=== PATIENT | male | born 1945 ===

== ENCOUNTER → 2020-07-10 | Outpatient (CLI) | payer OTHER ==
[~2020-07-10] VITALS: Ht 177.8 cm; Wt 86.2 kg
[~2020-07-10] MED LIST: DIOVAN 80 MG TA80 M1 PO; ELIQUIS5 MG PO; FISH OIL 1,0001 EAC9 PO; FOLIXAPURE5000 UNIT PO; GLUCOSAMINE H1500 MG PO; HYDROCHLOROTH12.5 M2 PO; LIPITOR 20 MG T20 M1 PO; OPTIFLEX-C400 MG PO; SUPER THERAVIT1 EACH PO; TAMBOCOR 100 M100 M1 PO; VIAGRA50 MG PO; VITAMIN B COMP1 EACH PO; VITAMIN C1000 MG PO
--- NOTE | ~2020-07-10 | HPC ---
[facility] [place] [address] PAIN MANAGEMENT CONSULTATION Name: CHRISTIANO YADAV Room #: REG KULDIP Begum.#: [id number] Admission: 07/10/20 Attend Phys: Jung Sanchez DO Discharge: Date of : 49 Report #: [id number] THIS REPORT FOR: cc: Bishnu Oneill MD,Jung Amaral MD, DO ~ CC: Dr. Nino Oneill DATE OF SERVICE: 07/10/2020 REFERRING PHYSICIAN: Dr. Oneill. CHIEF COMPLAINT: Low back pain, left lower extremity pain with paresthesias. HISTORY OF PRESENT ILLNESS: As you know, the patient is a very pleasant 75-year-old male who reports an acute recurrence of low back pain, left lower extremity pain that presented 11/28/2019. The patient indicates that he sought evaluation through his primary care physician due to ongoing pain issues that did not resolve with rest, relaxation, changes in activities and uhsm-uez-dvrpuye medications. He was subsequently referred to pain management with another pain service where he underwent L4-L5 lumbar epidural injection under fluoroscopic guidance to address spinal stenosis at L4-L5. This injection was met without any analgesic benefit. He returned in followup visit, underwent an L5-S1 intraarticular facet injection, which did provide improvement in symptoms consistent with the fact that epidural injections tend to migrate cephalad by 1 level when injecting. The fact that he received improvement was a bonus. He received about a month to month and a half improvement. He discussed further treatment with the pain management physician who advised the patient that they had nothing more to offer him and he was discharged. He sought evaluation again through his primary care physician and thus referred to our clinic to discuss options for treatment. The patient indicates days' pain is constant. Describes the pain as shooting and aching. Places current pain score 6/10, daily average anywhere from 4-8/10, worst pain has been is 9/10. The patient states his pain is exacerbated with standing, walking any long distance or lying in bed. Pain does improve with sitting or lying down. He has been referred to our service to discuss treatment options for his severe central canal stenosis at L4-L5 and bilateral neural foraminal stenosis at L4-L5 and L5-S1. PAST MEDICAL HISTORY: 1. Hypertension. 2. Chronic lumbar radiculopathy secondary to severe central canal stenosis. 3. Erectile dysfunction. [address] [address] PAIN MANAGEMENT CONSULTATION Name: CHRISTIANO YADAV Room #: REG CLI [facility]#: [id number] Admission: 07/10/20 Attend Phys: Jung Sanchez DO Discharge: Date of : 49 Report #: [id number] 4. Dyslipidemia. 5. Chronic anticoagulation. PAST SURGICAL HISTORY: 1. Tonsillectomy. 2. Right leg surgery 2014 and repeated in 2016, rotator cuff repair on the right 1993, left 2003, excision of various skin cancers. SOCIAL HISTORY: The patient denies tobacco use. He admits to 1-2 alcohol beverages per day. He denies IV or illicit drug use. He is retired, not receiving workmen's compensation nor is he trying to obtain disability benefits. He is not in litigation in regards to pain. He is unaccompanied at today's visit. REVIEW OF SYSTEMS: Positive for wearing corrective eyewear, cataracts, hearing loss with tinnitus, nocturia, low back pain, left lower extremity pain with paresthesias. All other review of systems negative per 12-point review of systems other than those listed in history of present illness. Pain impact score 45/70, severe interference of daily activities secondary to pain. ALLERGIES: No known drug allergies. CURRENT MEDICATIONS: Viagra 50 mg p.r.n., flecainide 100 mg b.i.d., hydrochlorothiazide 12.5 mg once a day, valsartan 80 mg once a day, atorvastatin 20 mg per day, Eliquis 5 mg b.i.d., Optiflex 400 mg once a day, glucosamine 1500 mg per day, vitamin D3 and folic acid 1 tablet per day, omega-3 fish oil 1 tab per day, vitamin B complex 1 tab per day, ascorbic acid 1000 mg once a day, multivitamin 1 tab per day. IMAGING: MRI lumbar spine obtained 04/26/2020 shows grade 2 anterolisthesis of L4 on L5 with related degenerative disk disease, advanced facet arthrosis and chronic left L4 pars interarticularis fracture. Combination results in severe central canal stenosis, tfoddmeb-jy-yojfae bilateral neural foraminal stenosis. L5-S1, severe degenerative disk disease, facet arthropathy that is advanced. This causes pormywff-vk-ffmhyl bilateral neural foraminal stenosis. There is advanced arthrosis noted at L3-L4 with only moderate central canal stenosis and moderate neural foraminal stenosis. PQRS: The patient has known arthritic changes of the lumbar spine, bilateral hips and knees. No rheumatoid arthritis. He is placing current pain score 6/10. He is not a fall risk, has not had a fall in last 3 months. He is on blood thinners in the form of Eliquis and continues the medication to date. He is treated for hypertension. He is not on chronic opioids, has a low opioid addiction potential based on our assessment tool. Pain impact 45/70, which [address] [place] [address] PAIN MANAGEMENT CONSULTATION Name: CHRISTIANO YADAV Room #: REG [facility]#: [id number] Admission: 07/10/20 Attend Phys: Jung Sanchez DO Discharge: Date of : 47 Report #: [id number] indicates severe interference with daily activities secondary to pain. PHYSICAL EXAMINATION: VITAL SIGNS: Blood pressure 141/87, pulse 67, respiratory rate 16 and unlabored. The patient is 96% on room air. Height 5 feet 10 inches tall, weight 190 pounds, BMI calculated 27.3. GENERAL: Well-developed, well-nourished, well-hydrated 75-year-old male appearing stated age. He is in mild distress secondary to pain, placing current pain score around 6/10. HEENT: Normocephalic, atraumatic. Pupils are round. There is no anisocoria, no fixed pupils. No dilated pupils. NEUROLOGIC: Speech is fluent. The patient deemed an excellent historian. LUNGS: Clear. No wheezes, rhonchi or rales. CARDIOVASCULAR: Regular. No appreciable gallop, no rub. ABDOMEN: Soft, nontender, nondistended, normal active bowel sounds. EXTREMITIES: Show no clubbing, no cyanosis, and no appreciable edema. MUSCULOSKELETAL: Lower extremity strength is symmetrical 5/5 except for dorsiflexion on the left, which is rated at approximately 2-3/5. The patient is unable to toe walk, but can heel walk. Seated straight leg raising positive on the left. Supine straight leg raising positive on the left. Navid's test is negative. Modified Gaenslen's positive for axial low back pain. Ankle clonus negative. Babinski is negative. He appears to be intact to light touch from L1 through S2 dermatomes, though there does appear to be a reduction in the distal L5 tactile sensation on the left when compared to the right. Muscle bulk and tone appears within normal limits except over the left lower extremity where there are some changes within the anterior tibialis with left greater than the right. ASSESSMENT: 1. Severe central canal stenosis. 2. Severe neural foraminal stenosis of the lumbar spine. 3. Grade 2 anterolisthesis of L4 on L5. 4. Facet arthropathy of the lumbar spine. 5. Chronic intractable pain. PLAN: 1. Based on today's physical exam and history the patient has provided, the description the patient uses in regards to pain as well as the distribution of symptoms he is experiencing pain upon likely source of the patient's pain is an L5 radiculopathy. The patient and I went over his MRI today, spending over 31 minutes of time reviewing that MRI and how those findings within the MRI correlate to his symptoms. The patient and I also discussed my concerns in regards to his reduction in dorsiflexion on the left when compared to the right. Muscle strength is severely weakened nearly 50% reduction in the capability of dorsiflexion when compared to the right. He was unable to even toe walk without assistance. I am very concerned about this patient's physical exam when [address] [address] PAIN MANAGEMENT CONSULTATION Name: CHRISTIANO YADAV Room #: REG KULDIP Azar#: [id number] Admission: 07/10/20 Attend Phys: Jung Sanchez DO Discharge: Date of : 47 Report #: [id number] correlating to his MRI. The patient and I did discuss the treatment options for lumbar radiculopathy today. The following was discussed with the patient. We discussed physical therapy, stretching exercises, core strengthening as a treatment option. He would also have to participate in some gait training as he is losing the capability of dorsiflexion and has difficulty with toeing off on the left side when compared to the right, which has also changed his gait more to a spastic style of gait such as you would see with residual stroke victims. We discussed medication management as a way to treat symptoms. These would include the neuropathic medications, nortriptyline, amitriptyline, Cymbalta, Lyrica or gabapentin. We discussed lumbar epidural injections under fluoroscopic guidance for which the patient was referred to our clinic, but did describe that his symptoms may be improved, but his weakness in the leg will not be affected. We also discussed spinal cord stimulator as an option and ultimately surgical decompression, which ultimately I believe will be necessary. After reviewing the risks and benefits of all proposed treatment options, the patient chose to move forward with a lumbar epidural injection under fluoroscopic guidance. 2. The patient was advised he will need to discontinue his Eliquis in preparation for the procedure. Eliquis has to be discontinued for 3 days. The patient will need to contact her prescribing physician to confirm he can come off the medication. If he is able to do so, we will have him return on Thursday morning to undergo a lumbar epidural injection under fluoroscopic guidance in hopes of improving pain. 3. No medication changes made at today's visit. We did discuss at length medication management, but at this time, the patient wishes to delay that option. We will discuss this again at followup visit. 4. We wish to thank the referring physician for the opportunity to see this patient in consultation. We will keep you apprised of his response to treatment as we address lumbar radicular symptoms secondary to severe central canal stenosis and severe neural foraminal stenosis at the L4-L5 level as well as combination of findings at the L5-S1 level, which at present is not causing symptoms, but is severe in nature. Again, we wish to thank you for the opportunity to see the patient in consultation. We will keep you apprised of his response to treatment. By: [phone] Jung Sanchze, /nt
[2020-07-10 09:39] VITALS: BP 141/87
== END ==
LOC: PAIN 06:54
PROVIDERS: ATTEND Anesthesiology Pain Medicine
DX: M48.061 Spinal stenosis, lumbar region without neurogenic claudication (principal); M54.16 Radiculopathy, lumbar region; I10 Essential (primary) hypertension; E78.5 Hyperlipidemia, unspecified; Z79.01 Long term (current) use of anticoagulants

== ENCOUNTER → 2020-07-13 | Outpatient (CLI) | payer OTHER ==
[~2020-07-13] VITALS: Ht 177.8 cm; Wt 90.9 kg
[2020-07-13 07:16] VITALS: BP 112/98
--- NOTE | 2020-07-18 12:43 | HPC ---
[facility] [place] [address] PAIN MANAGEMENT CONSULTATION Name: CHRISTIANO YADAV Room #: REG KULDIP Begum.#: [id number] Admission: 07/13/20 Attend Phys: Jung Sanchez DO Discharge: Date of : 49 Report #: [id number] THIS REPORT FOR: cc: Bishnu Oneill MD, Matthew B. MD Johnson, James E. DO ~ DATE OF SERVICE: 07/13/2020 REFERRING PHYSICIAN: Bishnu Oneill MD CHIEF COMPLAINT: Low back pain, left lower extremity pain with paresthesias. HISTORY OF PRESENT ILLNESS: As you know, the patient is a very pleasant 75-year-old male who has returned today in followup visit to undergo first in a series of lumbar epidural injections under fluoroscopic guidance. The patient has discontinued the use of his anticoagulant, Eliquis in preparation for today's procedure. He has been off the medication for the appropriate 3 days based on CARMEL guidelines. He returns today to undergo lumbar epidural injection under fluoroscopic guidance to address severe central canal stenosis and neural foraminal stenosis involving the left lower extremity. He denies any changes in medical history since our last visit. There has been no new injury or trauma. ALLERGIES: No known drug allergies. CURRENT MEDICATIONS: Viagra, flecainide, hydrochlorothiazide, valsartan, atorvastatin, Eliquis, Optiflex, glucosamine, vitamin D3 with folic acid, [place]-3 fish oil, vitamin B complex, ascorbic acid, and multivitamin. SOCIAL HISTORY: The patient denies tobacco use. Admits to 1-2 alcohol beverages per day. He is denying any IV or illicit drug use. Retired years ago, unaccompanied at today's visit. IMAGING: No new imaging available. PQRS: The patient has known arthritic changes of the lumbar spine, bilateral hips and knees. No rheumatoid arthritis. Today's pain intensity rated at 6/10. He is not a fall risk, has not had a fall in last 3 months. He is on blood thinners in the form of Eliquis, but discontinued the medication 3 days ago in preparation for today's procedure. He is treated for hypertension. He is not on chronic opioids, has a low opiate addiction potential. Pain impact 45/70, severe interference of daily activities secondary to pain. PHYSICAL EXAMINATION: VITAL SIGNS: Blood pressure 112/98, pulse 100, respiratory rate 16 and unlabored. The patient is 96% on room air. Height 5 feet 7 inches tall, weight [facility] [address] [place] [address] PAIN MANAGEMENT CONSULTATION Name: CHRISTIANO YADAV Room #: REG [facility]#: [id number] Admission: 07/13/20 Attend Phys: Jung Sanchez DO Discharge: Date of : 47 Report #: [id number] 200.4 pounds, BMI calculated at 28.8. GENERAL: Well-developed, well-nourished, well-hydrated 75-year-old male appearing stated age, pain is rated today at 6/10. HEENT: Normocephalic, atraumatic. Pupils are responsive. EXTREMITIES: Show no clubbing, no cyanosis, no edema. MUSCULOSKELETAL: Lower extremity strength is equal and symmetrical 5/5 except for dorsiflexion of the left foot, which is rated only at 2 to possibly 3/5. He is unable to toe walk and heel walk due to this decreased strength. Seated straight leg raising is positive on the left. Supine straight leg raising positive on the left. ASSESSMENT: 1. Lumbar radiculopathy. 2. Severe central canal stenosis of lumbar spine. 3. Severe neural foraminal stenosis of the lumbar spine. 4. Grade 2 anterolisthesis of L4 on L5. 5. Facet arthropathy of the lumbar spine. 6. Chronic intractable pain. PLAN: 1. The patient returns today in followup visit having discontinued his Eliquis in preparation for a lumbar epidural injection under fluoroscopic guidance. The patient has been advised of the risks and the benefits of a lumbar epidural injection. These risks include but are not necessarily limited to bleeding, bruising, infection, worsening pain, no relief of pain, also risk of temporary or permanent muscle weakness, temporary or permanent nerve damage, possible paralysis and . The patient states understood and wished to proceed. 2. No medication changes made at today's visit. The patient will continue current medical therapy as prior prescribed. 3. We will see the patient back in followup visit on an as needed basis for possible next in the series of epidural injections. He will restart his Eliquis today and continue the medication until her followup visit. PROCEDURE NOTE DESCRIPTION OF PROCEDURE: L5-S1 left paramedian epidural steroid injection under fluoroscopic guidance. This is the first procedure of the first series that the patient is undergoing. After obtaining written consent, the patient was taken back to the fluoroscopy suite, placed in a prone position with pillow under the abdomen to decrease lumbar lordosis. The skin overlying the lumbosacral area was then prepped and draped in aseptic fashion. The L5-S1 vertebral interspace was then identified by AP fluoroscopy. The skin and subcutaneous tissue overlying the target site of injection was anesthetized with 3 mL 1% lidocaine. [address] [address] PAIN MANAGEMENT CONSULTATION Name: CHRISTIANO YADAV Room #: REG [facility]#: [id number] Admission: 07/13/20 Attend Phys: Jung Sanchez DO Discharge: Date of : 47 Report #: [id number] A 20-gauge 3-1/2 inch Tuohy needle was then advanced under fluoroscopic guidance towards the epidural space using a left paramedian approach. The epidural space was identified using loss of resistance to air technique. After negative aspiration for heme or cerebrospinal fluid, a total of 1 mL of Omnipaque was injected. A lumbar epidurogram was confirmed using both AP and lateral fluoroscopy. After negative aspiration for heme or cerebrospinal fluid, 5 mL of solution containing 2 mL 40 mg/mL, 80 mg total triamcinolone along 3 mL of lidocaine 1% was injected in increments. Contrast spread was noted post-epidural space. The needle was then retracted approximately half way and needle tract flushed with 1 mL of lidocaine. Needle was then removed. There were no apparent sensory or motor deficits in the lower extremity following the procedure. A sterile bandage was placed over the injection site. The heart rate, pulse, oximetry and blood pressure were continuously monitored after the procedure. There were no apparent complications. The patient tolerated the procedure well and was carefully escorted to the recovery room in stable condition. There were no apparent complications. After meeting discharge criteria, the patient was then discharged home. <ELECTRONICALLY SIGNED> By: Jung Sanchez DO 07/18/20 [id number] Jung Sanchez DO /laura
== END | disposition home or self-care (01) ==
LOC: PAIN 06:47
PROVIDERS: ATTEND Anesthesiology Pain Medicine
DX: M48.061 Spinal stenosis, lumbar region without neurogenic claudication (principal); M47.26 Other spondylosis with radiculopathy, lumbar region; M43.16 Spondylolisthesis, lumbar region; G89.29 Other chronic pain; I10 Essential (primary) hypertension; M19.90 Unspecified osteoarthritis, unspecified site; Z98.890 Other specified postprocedural states; Z79.899 Other long term (current) drug therapy; Z79.01 Long term (current) use of anticoagulants